=== PATIENT | male | born 1995 | race Two or more races ===

== ENCOUNTER 2023-09-13 14:25 | Emergency (ER) | payer SELFPAY ==
[2023-09-13 15:09] VITALS: BP 126/91; PULSE 101; RESP 21; O2SAT 93
[2023-09-13] MEDS ORDERED: CLAR1TAB21 PO (16:07)
== END 2023-09-13 15:53 | disposition left against medical advice (07) ==
LOC: EDUNIT# 14:25 → EDBD 14:25 → ER 14:25
DX: T40.411A Poisoning by fentanyl or fentanyl analogs, accidental (unintentional), initial encounter (principal); T40.601A Poisoning by unspecified narcotics, accidental (unintentional), initial encounter; J18.9 Pneumonia, unspecified organism; J45.909 Unspecified asthma, uncomplicated; F17.210 Nicotine dependence, cigarettes, uncomplicated; Z53.29 Procedure and treatment not carried out because of patient's decision for other reasons; Y92.89 Other specified places as the place of occurrence of the external cause
CPT/HCPCS: 71045; 93005

== ENCOUNTER 2023-10-07 21:46 | Emergency (ER) | payer SELFPAY ==
[~2023-10-07] VITALS: Ht 175.3 cm; Wt 91.0 kg
[2023-10-07 21:46] VITALS: BP 141/96; PULSE 110; RESP 16; O2SAT 96
[~2023-10-07 21:46] MED LIST: CLAR1TAB21 PO
[2023-10-07 22:34] LABS: Basophils # (auto) 0.1 10 ^3/uL (0-0.2); Basophils % (auto) 0.4 % (0.0-2.0); Eosinophils # (auto) 0 10 ^3/uL (0-0.8); Eosinophils % (auto) 0.1 % (0.0-7.0); Hematocrit 44.8 % (41.0-53.0); Hemoglobin 14.7 g/dL (13.5-17.5); Lymphocytes # (auto) 0.8 10 ^3/uL (0.4-5.4); Lymphocytes % (auto) 3.8 % (10.0-50.0); Mean Corpuscular Hemoglobin 28.7 pg (28.0-32.0); Mean Corpuscular Hgb Conc. 32.8 g/dL (32.0-36.0); Mean Corpuscular Volume 87.6 fL (80.0-100.0); Monocytes # (auto) 1.4 10 ^3/uL (0-1.3); Monocytes % (auto) 6.9 % (0.0-12.0); Neutrophils # (auto) 18.6 10 ^3/uL (1.6-8.6); Neutrophils % (auto) 88.8 % (37.0-80.0); Red Blood Cells 5.11 10^6/uL (4.5-5.90); Red Cell Distribution Width 13.6 % (11.8-14.3); White Blood Cell 20.9 10^3/uL (4.4-10.8)
[2023-10-07 22:48] LABS: Alanine Aminotransferase 23 U/L (7-40); Alkaline Phosphatase 72 U/L (46-116); Anion Gap 7 (5-15); Aspartate Aminotransferase 23 U/L (13-40); Bilirubin, Total 0.6 mg/dL (0.2-1.0); Blood Urea Nitrogen 22 mg/dL (9-23); Calcium 10.1 mg/dL (8.5-10.1); Carbon Dioxide 29 mmol/L (20-30); Chloride 106 mmol/L (98-107); Glucose 104 mg/dL (74-106); Potassium 4.3 mmol/L (3.5-5.1); Sodium 142 mmol/L (136-145); Total Protein 8.6 g/dL (5.7-8.2)
[2023-10-07 22:49] LABS: BUN/Creatinine Ratio 10.9 (10.0-20.0)
== END 2023-10-08 03:32 | disposition left against medical advice (07) ==
LOC: ER 21:46 → EDBD 21:46 → ER 23:46
DX: T40.411A Poisoning by fentanyl or fentanyl analogs, accidental (unintentional), initial encounter (principal); J45.909 Unspecified asthma, uncomplicated; F17.210 Nicotine dependence, cigarettes, uncomplicated; Y92.89 Other specified places as the place of occurrence of the external cause
CPT/HCPCS: 36415; 80053; 84484; 85025